=== PATIENT | male | born 1965 | race Caucasian/White ===

== ENCOUNTER 2025-05-30 02:16 | Emergency (ER) | payer OTHER ==
[2025-05-30] MEDS ORDERED: EPINEPHrine 1 MG/10 ML SYRINGE 1.5IN ONE ×3 (02:17)
== END 2025-05-30 04:34 | disposition expired ==
LOC: EDBD 02:16 → M ED 02:16
DX: I46.9 Cardiac arrest, cause unspecified (principal)
CPT/HCPCS: 92950; 99283; J0168

== ENCOUNTER → 2025-05-31 | Outpatient (REF) | LOC: M LAB 11:00 | PROVIDERS: ATTEND Pathology Forensic Pathology | DX: Z02.89 Encounter for other administrative examinations (principal) ==